=== PATIENT | male | born 1985 | race Caucasian/White ===

== ENCOUNTER 2017-08-04 15:03 | Emergency (ER) | payer MEDICARE | END 2017-08-04 17:37 | disposition home or self-care (01) | LOC: D.ER 15:03 | DX: S29.012A Strain of muscle and tendon of back wall of thorax, initial encounter (principal); X50.0XXA Overexertion from strenuous movement or load, initial encounter; X50.9XXA Other and unspecified overexertion or strenuous movements or postures, initial encounter; Y93.89 Activity, other specified; Y92.89 Other specified places as the place of occurrence of the external cause; F17.200 Nicotine dependence, unspecified, uncomplicated; N02.8 Recurrent and persistent hematuria with other morphologic changes ==

== ENCOUNTER 2017-10-21 21:57 | Emergency (ER) | payer SELFPAY ==
[~2017-10-21] VITALS: Ht 165.1 cm; Wt 83.9 kg
[2017-10-21 22:03] VITALS: Ht 165.1 cm; Wt 83.9 kg
[2017-10-21] MEDS ORDERED: BAYER CHEWABLE81 MG PO (22:04)
[2017-10-21] MEDS ORDERED: NEURONTIN800 MG PO (22:04)
[2017-10-21] MEDS ORDERED: ATARAX 25 MG TA25 MG PO (23:01)
[2017-10-21] MEDS ORDERED: PREDNISONE20 MG PO (23:01)
[2017-10-22 00:10] VITALS: BP 118/82
== END 2017-10-22 00:11 | disposition home or self-care (01) ==
LOC: D.ER 21:57
DX: L25.9 Unspecified contact dermatitis, unspecified cause (principal); I73.1 Thromboangiitis obliterans [Buerger's disease]

== ENCOUNTER 2017-10-31 21:08 | Emergency (ER) | payer SELFPAY ==
[~2017-10-31] VITALS: Ht 165.1 cm; Wt 84.1 kg
[~2017-10-31 21:08] MED LIST: ATARAX 25 MG TA25 MG PO; BAYER CHEWABLE81 MG PO; NEURONTIN800 MG PO; PREDNISONE20 MG PO
[2017-10-31 21:28] VITALS: Ht 165.1 cm; Wt 84.1 kg
[2017-10-31] MEDS ORDERED: HYDROCODONE-APA1 TAB PO (23:32)
[2017-10-31 23:51] VITALS: BP 124/68
== END 2017-10-31 23:50 | disposition home or self-care (01) ==
LOC: D.ER 21:08
DX: I73.1 Thromboangiitis obliterans [Buerger's disease] (principal); G62.9 Polyneuropathy, unspecified

== ENCOUNTER 2017-11-03 15:09 | Emergency (ER) | payer SELFPAY ==
[~2017-11-03] VITALS: Ht 165.1 cm; Wt 84.1 kg
[~2017-11-03 15:09] MED LIST changes: +HYDROCODONE-APA1 TAB PO
[2017-11-03 15:19] VITALS: BP 171/109; Ht 165.1 cm; Wt 84.1 kg
[2017-11-03 16:24] LABS: BASOPHILS 0.4 % (0-2); EOSINOPHILS 9.3 % (0-7); HEMATOCRIT 40.9 % (42.0-54.0); HEMOGLOBIN 13.8 g/dL (13.5-17.5); IMMATURE GRANULOCYTES 0.3 % (0-5); LYMPHOCYTES 16.6 % (15-50); MCH 29.6 pg (26.0-34.0); MCHC 33.7 g/dL (31.0-37.0); MCV 87.8 fL (80.0-100.0); MEAN PLATELET VOLUME 10.2 fL (7.4-10.4); MONOCYTES 8.8 % (2-11); NEUTROPHILS 64.6 % (40-80); PLATELET COUNT 215 10x3/uL (130-400); RBC 4.66 10x6/uL (4.20-6.10); RDW 12.9 % (11.5-14.5); WBC 7.5 10x3/uL (4.8-10.8)
[2017-11-03 16:35] LABS: ALBUMIN 3.7 g/dL (3.4-5.0); ALKALINE PHOSPHATASE 57 U/L (46-116); ALT (SGPT) 26 U/L (10-68); BILIRUBIN - TOTAL 0.21 mg/dL (0.2-1.3); CALC OSMOLALITY 279 mosm/kg (275-300); CALCIUM 8.5 mg/dL (8.5-10.1); CARBON DIOXIDE 32.9 mmol/L (21.0-32.0); CHLORIDE - SERUM 103 mmol/L (98-107); CREATININE - SERUM 0.9 mg/dL (0.6-1.3); GLUCOSE 104 mg/dL (74-106); POTASSIUM - SERUM 3.4 mmol/L (3.5-5.1); PROTEIN - SERUM 6.7 g/dL (6.4-8.2); SODIUM 141 mmol/L (136-145); UREA NITROGEN 9 mg/dL (7-18); eGFR NON AFRICAN AMERICAN > 90 mL/min (90-120)
== END 2017-11-03 18:13 | disposition home or self-care (01) ==
LOC: D.ER 15:09
PROVIDERS: Nurse Practitioner Family
DX: R20.2 Paresthesia of skin (principal); M79.662 Pain in left lower leg

== ENCOUNTER 2018-01-05 14:57 | Emergency (ER) | payer MEDICAID ==
[~2018-01-05] VITALS: Ht 165.1 cm; Wt 75.0 kg
[2018-01-05 15:00] VITALS: Ht 165.1 cm; Wt 75.0 kg
[2018-01-05] MEDS ORDERED: BAYER ASPIRIN325 MG PO (15:05)
[2018-01-05] MEDS ORDERED: CLOTRIM ANTIFUN15 GM TOPICAL (19:18)
[2018-01-05] MEDS ORDERED: NEURONTIN800 MG PO (19:18)
[2018-01-05] MEDS ORDERED: KEFLEX500 MG PO (19:18)
[2018-01-05 20:22] VITALS: BP 132/74
== END 2018-01-05 20:22 | disposition home or self-care (01) ==
LOC: D.ER 14:57
DX: I73.1 Thromboangiitis obliterans [Buerger's disease] (principal); B35.3 Tinea pedis; G40.909 Epilepsy, unspecified, not intractable, without status epilepticus

== ENCOUNTER 2018-01-22 17:25 | Observation (INO) | payer MEDICAID ==
[~2018-01-22] VITALS: Ht 165.1 cm; Wt 81.8 kg
--- NOTE | ~2018-01-22 | MORECARE ---
CASE MANAGEMENT DISCHARGE SUMMARY PATIENT: DUSTIN MORRISON UNIT: [id number] ADM DATE: 01/22/18 AGE: 32 : 85 SEX: M ROOM/BED: D.2118 AUTHOR: AMBROSE TOVAR PHYSICIAN: REFERRING PHYSICIAN: SHEILA SILVA MD DATE OF SERVICE: 01/23/18 Discharge Plan Patient Name: DUSTIN MORRISON [facility] [facility] 1985 Planned Disposition: Home Anticipated Discharge Date: 01/24/18 Discharge Date: Expected LOS: 2 Initial Reviewer: [email or web address] Initial Review Date: 01/22/2018 Generated: 01/23/18 5:46 pm DCPIA - Discharge Planning Initial Assessment Updated by [email or web address]: Mauri Hartley on 01/23/18 4:45 pm * Is the patient Alert and Oriented? Yes * How many steps to enter\exit or inside your home? * PCP NONE * Pharmacy [facility]. * Preadmission Environment Home with Family * ADLs Independent * Equipment Walker Wheelchair * Other Equipment NO MEDICAL EQUIPMENT PROVIDER PREFERENCE * List name and contact numbers for known caregivers / representatives who currently or will assist patient after discharge: CARIN CORDERO, SPOUSE, * Verbal permission to speak to the caregivers and representatives has been obtained from the patient. N/A * Community resources currently utilized None * Please name any agencies selected above. NONE * Additional services required to return to the preadmission environment? No * Can the patient safely return to the preadmission environment? Yes * Has this patient been hospitalized within the prior 30 days at any hospital? No Patient Name: DUSTIN MORRISON Page 71011 at 1646 All edits/amendments must be made on the electronic document DICTATION DATE: 01/23/181645 CARTON STAPLER: KVNG 01/23/181645 RPT#: [id number] DC DATE: STATUS: ADM IN [facility] [address] [place] [address] END OF REPORT
--- NOTE | ~2018-01-22 | MORECARE ---
CASE MANAGEMENT DISCHARGE SUMMARY PATIENT: DUSTIN MORRISON UNIT: [id number] ADM DATE: 01/22/18 AGE: 32 : 85 SEX: M ROOM/BED: D.0118 AUTHOR: GUY,DOC PHYSICIAN: REFERRING PHYSICIAN: SHEILA SILVA MD DATE OF SERVICE: 01/24/18 Discharge Plan Patient Name: DUSTIN MORRISON Facility: [facility]:[place] : 1985 Planned Disposition: Home Anticipated Discharge Date: 01/23/18 Discharge Date: 01/23/2018 Expected LOS: 1 Initial Reviewer: [email or web address] Initial Review Date: 01/22/2018 Generated: 01/24/18 8:37 am Comments DCP- Discharge Planning Updated by [email or web address]: Mauri Hartley on 01/23/18 3:[address] Patient Name: DUSTIN MORRISON Admission Status: ER Accout number: [id number] Admission Date: 01-22-2018 : 1985 Admission Diagnosis: Attending: SHEILA SILVA Current LOS: 1 Anticipated DC Date: 01-24-2018 Planned Disposition: Home Primary Insurance: MEDICAID [id number] Discharge Planning Comments: CM RECEIVED ORDER FOR PRIMARY CARE DOCTOR AND APPOINTMENT. CM MET WITH PT IN ROOM TO DISCUSS DISCHARGE PLANNING AND NEEDS. PT REPORTS LIVING AT HOME INDEPENDENTLY WITH HIS , CHILD AND ANOTHER ADULT ROOMMATE. PT HAS WALKER AND WHEELCHAIR WITH NO MEDICAL EQUIPMENT PROVIDER PREFERENCE. PT HAS NO OUTSIDE SERVICES ASSISTING IN THE HOME. CM DISCUSSED AVAILABILITY OF HOME HEALTH, REHAB SERVICES AND MEDICAL EQUIPMENT. PT DENIES DISCHARGE NEEDS BUT REPORTS NOT HAVING PRIMARY CARE DOCTOR AND HE HAS BEEN USING EMERGENCY ROOMS RECENTLY FOR MEDICAL CARE. PT HAS NOT BEEN GETTING HIS PRESCRIPTIONS, REPORTS HAVING MEDICAID THAT WILL NOT COVER MEDICATIONS BECAUSE HE ALSO HAS MEDICARE AND HAD TO BUY PART "D" COVERAGE BUT THAT WILL NOT TAKE EFFECT UNTIL . PT REPORTS HIS ROOMMATE WILL PICK HIM UP FOR DISCHARGE HOME. CM PROVIDED [facility] INFORMATION AND INSTRUCTED PT ON HOW TO CALL AND SCHEDULE APPOINTMENT FOR EVALUATION AT THE CLINIC FOR POSSIBLE PRIMARY CARE MEDICAL SERVICES. PT REPORTED UNDERSTANDING. CM REFERRED PT TO DEPARTMENT OF HUMAN SERVICES AND SOCIAL SECURITY ADMINISTRATION FOR QUESTIONS REGARDING HIS LACK OF PRESCRIPTION COVERAGE TO THIS POINT IN TIME. 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 PT REPORTS UNDERSTANDING. PT PLANS TO DISCHARGE HOME WITH FAMILY AND ROOMMATE. PATIENT DOES NOT HAVE PRESCRIPTION DRUG COVERAGE UNTIL APRIL 2018. PT REFERRED TO [facility] FOR PRIMARY CARE. CM WILL LOOK FOR ANY AVAILABLE DRUG ASSISTANCE PROGRAMS THAT MAY ASSIST PT PRIOR TO APRIL 2018 ONCE DISCHARGE MEDICATION LIST IS KNOWN. Ext Js Developer: Mauri Hartley DCPIA - Discharge Planning Initial Assessment Updated by [email or web address]: Mauri Hartley on 01/23/18 4:45 pm * Is the patient Alert and Oriented? Yes * How many steps to enter\\exit or inside your home? * PCP NONE * Pharmacy [facility]. * Preadmission Environment Home with Family * ADLs Independent * Equipment Walker Wheelchair * Other Equipment NO MEDICAL EQUIPMENT PROVIDER PREFERENCE * List name and contact numbers for known caregivers / representatives who currently or will assist patient after discharge: CARIN CORDERO, SPOUSE, * Verbal permission to speak to the caregivers and representatives has been obtained from the patient. N/A * Community resources currently utilized None * Please name any agencies selected above. NONE * Additional services required to return to the preadmission environment? No * Can the patient safely return to the preadmission environment? Yes * Has this patient been hospitalized within the prior 30 days at any hospital? No Last DP export: 01/23/18 3:56 Patient Name: DUSTIN MORRISON Page 16630 at 0737 All edits/amendments must be made on the electronic document DICTATION DATE: 01/24/18736 AIRCRAFT DELIVERY CHECKER: KVNG 01/24/1837 RPT#: [id number] DC DATE:01/23/18 STATUS: DIS IN [facility] [address] [place] [address] END OF REPORT
--- NOTE | ~2018-01-22 | MORECARE ---
CASE MANAGEMENT DISCHARGE SUMMARY PATIENT: DUSTIN MORRISON UNIT: [id number] ADM DATE: 01/22/18 AGE: 32 : 85 SEX: M ROOM/BED: D.3629 AUTHOR: GUY,DOC PHYSICIAN: REFERRING PHYSICIAN: SHEILA SILVA MD DATE OF SERVICE: 01/23/18 Discharge Plan Patient Name: DUSTIN MORRISON Facility: [facility]:[place] : 1985 Planned Disposition: Home Anticipated Discharge Date: 01/24/18 Discharge Date: Expected LOS: 2 Initial Reviewer: [email or web address] Initial Review Date: 01/22/2018 Generated: 01/23/18 5:56 pm Comments DCP- Discharge Planning Updated by [email or web address]: Mauri Hartley on 01/23/18 3:[address] Patient Name: DUSTIN MORRISON Admission Status: ER Accout number: [id number] Admission Date: 01-22-2018 : 1985 Admission Diagnosis: Attending: SHEILA SILVA Current LOS: 1 Anticipated DC Date: 01-24-2018 Planned Disposition: Home Primary Insurance: MEDICAID [place] Discharge Planning Comments: CM RECEIVED ORDER FOR PRIMARY CARE DOCTOR AND APPOINTMENT. CM MET WITH PT IN ROOM TO DISCUSS DISCHARGE PLANNING AND NEEDS. PT REPORTS LIVING AT HOME INDEPENDENTLY WITH HIS , CHILD AND ANOTHER ADULT ROOMMATE. PT HAS WALKER AND WHEELCHAIR WITH NO MEDICAL EQUIPMENT PROVIDER PREFERENCE. PT HAS NO OUTSIDE SERVICES ASSISTING IN THE HOME. CM DISCUSSED AVAILABILITY OF HOME HEALTH, REHAB SERVICES AND MEDICAL EQUIPMENT. PT DENIES DISCHARGE NEEDS BUT REPORTS NOT HAVING PRIMARY CARE DOCTOR AND HE HAS BEEN USING EMERGENCY ROOMS RECENTLY FOR MEDICAL CARE. PT HAS NOT BEEN GETTING HIS PRESCRIPTIONS, REPORTS HAVING MEDICAID THAT WILL NOT COVER MEDICATIONS BECAUSE HE ALSO HAS MEDICARE AND HAD TO BUY PART "D" COVERAGE BUT THAT WILL NOT TAKE EFFECT UNTIL . PT REPORTS HIS ROOMMATE WILL PICK HIM UP FOR DISCHARGE HOME. CM PROVIDED [facility] INFORMATION AND INSTRUCTED PT ON HOW TO CALL AND SCHEDULE APPOINTMENT FOR EVALUATION AT THE CLINIC FOR POSSIBLE PRIMARY CARE MEDICAL SERVICES. PT REPORTED UNDERSTANDING. CM REFERRED PT TO DEPARTMENT OF HUMAN SERVICES AND SOCIAL SECURITY ADMINISTRATION FOR QUESTIONS REGARDING HIS LACK OF PRESCRIPTION COVERAGE TO THIS POINT IN TIME. 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 PT REPORTS UNDERSTANDING. PT PLANS TO DISCHARGE HOME WITH FAMILY AND ROOMMATE. PATIENT DOES NOT HAVE PRESCRIPTION DRUG COVERAGE UNTIL APRIL 2018. PT REFERRED TO [facility] FOR PRIMARY CARE. CM WILL LOOK FOR ANY AVAILABLE DRUG ASSISTANCE PROGRAMS THAT MAY ASSIST PT PRIOR TO APRIL 2018 ONCE DISCHARGE MEDICATION LIST IS KNOWN. Child Adolescent Psychiatrist: Mauri Hartley DCPIA - Discharge Planning Initial Assessment Updated by [id number]: Mauri Hartley on 01/23/18 4:45 pm * Is the patient Alert and Oriented? Yes * How many steps to enter\\exit or inside your home? * PCP NONE * Pharmacy [facility]. * Preadmission Environment Home with Family * ADLs Independent * Equipment Walker Wheelchair * Other Equipment NO MEDICAL EQUIPMENT PROVIDER PREFERENCE * List name and contact numbers for known caregivers / representatives who currently or will assist patient after discharge: CARIN CORDERO, SPOUSE, * Verbal permission to speak to the caregivers and representatives has been obtained from the patient. N/A * Community resources currently utilized None * Please name any agencies selected above. NONE * Additional services required to return to the preadmission environment? No * Can the patient safely return to the preadmission environment? Yes * Has this patient been hospitalized within the prior 30 days at any hospital? No Last DP export: 01/23/18 3:46 Patient Name: DUSTIN MORRISON Page [id number] at 1656 All edits/amendments must be made on the electronic document DICTATION DATE: 01/23/181655 HVAC DESIGNER: KVNG 01/23/181655 RPT#: [id number] DC DATE: STATUS: ADM IN [facility] [address] [place] [address] END OF REPORT
[~2018-01-22 17:25] MED LIST changes: +BAYER ASPIRIN325 MG PO; +CLOTRIM ANTIFUN15 GM TOPICAL; +KEFLEX500 MG PO
[2018-01-22] MEDS ORDERED: ULTRAM50 MG PO (17:29)
[2018-01-22 19:16] LABS: BASOPHILS 0.9 % (0-2); EOSINOPHILS 11.7 % (0-7); HEMATOCRIT 45.4 % (42.0-54.0); HEMOGLOBIN 15.9 g/dL (13.5-17.5); IMMATURE GRANULOCYTES 0.2 % (0-5); LYMPHOCYTES 14.8 % (15-50); MCH 29.7 pg (26.0-34.0); MCV 84.9 fL (80.0-100.0); MEAN PLATELET VOLUME 12.4 fL (7.4-10.4); MONOCYTES 7.7 % (2-11); NEUTROPHILS 64.7 % (40-80); PLATELET COUNT 217 10x3/uL (130-400); RBC 5.35 10x6/uL (4.20-6.10); RDW 13.4 % (11.5-14.5); WBC 8.5 10x3/uL (4.8-10.8)
[2018-01-22 19:40] LABS: ALKALINE PHOSPHATASE 66 U/L (46-116); ALT (SGPT) 41 U/L (10-68); BILIRUBIN - TOTAL 0.23 mg/dL (0.2-1.3); CALC OSMOLALITY 282 mosm/kg (275-300); CALCIUM 9.3 mg/dL (8.5-10.1); CARBON DIOXIDE 25.9 mmol/L (21.0-32.0); CHLORIDE - SERUM 103 mmol/L (98-107); CREATININE - SERUM 0.9 mg/dL (0.6-1.3); GLUCOSE 124 mg/dL (74-106); POTASSIUM - SERUM 4.1 mmol/L (3.5-5.1); PROTEIN - SERUM 7.3 g/dL (6.4-8.2); SODIUM 141 mmol/L (136-145); UREA NITROGEN 14 mg/dL (7-18); eGFR NON AFRICAN AMERICAN > 90 mL/min (90-120)
[2018-01-22 19:41] LABS: APTT 26.4 SECONDS (22.8-39.4); INR 1.22 (0.85-1.17)
[2018-01-22 20:09] LABS: APPEARANCE CLEAR (CLEAR); COLOR YELLOW (YELLOW); SPECIFIC GRAVITY 1.015 (1.005-1.020)
[2018-01-22 20:10] LABS: BILIRUBIN NEGATIVE (NEGATIVE); GLUCOSE NEGATIVE (NEGATIVE); KETONE NEGATIVE (NEGATIVE); NITRITE NEGATIVE (NEGATIVE); PROTEIN NEGATIVE (NEGATIVE); UROBILINOGEN NORMAL (NORMAL)
[2018-01-22 22:49] VITALS: BP 136/64
[2018-01-23] VITALS: BP 118/71
[2018-01-23 04:00] VITALS: BP 121/74
[2018-01-23 06:15] LABS: BASOPHILS 0.1 % (0-2); EOSINOPHILS 0.1 % (0-7); HEMATOCRIT 40.7 % (42.0-54.0); HEMOGLOBIN 14.4 g/dL (13.5-17.5); IMMATURE GRANULOCYTES 0.4 % (0-5); LYMPHOCYTES 7.4 % (15-50); MCH 30.4 pg (26.0-34.0); MCHC 35.4 g/dL (31.0-37.0); MEAN PLATELET VOLUME 11.9 fL (7.4-10.4); MONOCYTES 2.8 % (2-11); NEUTROPHILS 89.2 % (40-80); RBC 4.73 10x6/uL (4.20-6.10); RDW 13.5 % (11.5-14.5); WBC 7.1 10x3/uL (4.8-10.8)
[2018-01-23 06:26] LABS: PLATELET COUNT 150 10x3/uL (130-400)
[2018-01-23 07:11] LABS: ALBUMIN 3.9 g/dL (3.4-5.0); ALKALINE PHOSPHATASE 57 U/L (46-116); ALT (SGPT) 39 U/L (10-68); BILIRUBIN - TOTAL 0.31 mg/dL (0.2-1.3); CALC OSMOLALITY 279 mosm/kg (275-300); CALCIUM 9.5 mg/dL (8.5-10.1); CARBON DIOXIDE 26.4 mmol/L (21.0-32.0); CHLORIDE - SERUM 103 mmol/L (98-107); CREATININE - SERUM 0.9 mg/dL (0.6-1.3); GLUCOSE 151 mg/dL (74-106); POTASSIUM - SERUM 4.6 mmol/L (3.5-5.1); PROTEIN - SERUM 7.2 g/dL (6.4-8.2); SODIUM 139 mmol/L (136-145); UREA NITROGEN 11 mg/dL (7-18); eGFR NON AFRICAN AMERICAN > 90 mL/min (90-120)
[2018-01-23 08:14] VITALS: BP 96/58
[2018-01-23 11:52] VITALS: BP 116/69
[2018-01-23 12:11] VITALS: Ht 165.1 cm; Wt 81.8 kg
[2018-01-23] MEDS ORDERED: NORCO 10-325 TA1 TAB PO (12:27)
[2018-01-23 15:03] VITALS: BP 110/62
== END 2018-01-23 20:02 | disposition home or self-care (01) ==
LOC: D.ER 17:25 → D.M2 21:06 → OBSVTIME 21:07 → D.M2 01-23 20:02
PROVIDERS: Family Medicine
DX: S27.321A Contusion of lung, unilateral, initial encounter (principal); V49.40XA Driver injured in collision with unspecified motor vehicles in traffic accident, initial encounter; M79.642 Pain in left hand; M79.641 Pain in right hand; M25.562 Pain in left knee; M25.561 Pain in right knee; R51 Headache; M54.2 Cervicalgia

== ENCOUNTER 2018-04-12 12:10 | Inpatient (IN) | payer MEDICARE ==
[~2018-04-12] VITALS: Ht 165.1 cm; Wt 83.9 kg
[~2018-04-12 12:10] MED LIST changes: +NORCO 10-325 TA1 TAB PO; +ULTRAM50 MG PO
[2018-04-12 15:13] VITALS: BP 129/91; BMI 30.8
[2018-04-12] MEDS ORDERED: COLACE100 MG PO (19:32)
[2018-04-12] MEDS ORDERED: OXYCODONE HCL5 M1 PO ×2 (19:33→19:35)
[2018-04-12] MEDS ORDERED: CYCLOBENZAPRINE5 MG PO (19:37)
[2018-04-12] MEDS ORDERED: PAMELOR10 MG PO (19:38)
--- NOTE | 2018-04-12 20:00 | NUR ---
PT RESTING IN BED WITH EYES OPEN. ALERT AND ORIENTED X 3. PT VOICED COMPLAINT OF LEFT LEG INCISION PAIN LEVEL OF 8. WILL MEDICATE PER MAR NECESSARY. INCISION IS CDI. LUIS ARE INTACT. NO ACTIVE DRAINAGE NOTED. PT HAS HIS LEG IMMOBILIZER OFF. HE STATED IT CAUSED TO MUCH PAIN TO WEAR IT WHILE IN BED. CALL LIGHT AND BEDSIDE TABLE ARE WITHIN EASY REACH.
[2018-04-12 20:33] VITALS: BP 163/86
--- NOTE | 2018-04-12 23:40 | NUR ---
PT IS RESTING IN BED WATCHING TV. NO ACUTE DISTRESS NOTED.
--- NOTE | 2018-04-13 01:46 | NUR ---
PT RESTING IN BED WITH EYES CLOSED.
--- NOTE | 2018-04-13 04:51 | NUR ---
RESTING IN BED WITH EYES CLOSED.
--- NOTE | 2018-04-13 05:57 | NUR ---
PT ASLEEP NO NEEDS NOTED FLUIDS AND CALL LIGHT WITHIN REACH
[2018-04-13 06:47] LABS: HEMATOCRIT 35.2 % (42.0-54.0); HEMOGLOBIN 11.6 g/dL (13.5-17.5); MCH 29.3 pg (26.0-34.0); MCV 88.9 fL (80.0-100.0); MEAN PLATELET VOLUME 10.7 fL (7.4-10.4); RBC 3.96 10x6/uL (4.20-6.10); RDW 13.4 % (11.5-14.5); WBC 7.4 10x3/uL (4.8-10.8)
[2018-04-13 06:49] LABS: PLATELET COUNT 206 10x3/uL (130-400)
[2018-04-13 07:17] LABS: CALC OSMOLALITY 273 mosm/kg (275-300); CALCIUM 9.1 mg/dL (8.5-10.1); CARBON DIOXIDE 28.4 mmol/L (21.0-32.0); CHLORIDE - SERUM 100 mmol/L (98-107); CREATININE - SERUM 0.9 mg/dL (0.6-1.3); GLUCOSE 121 mg/dL (74-106); POTASSIUM - SERUM 4.1 mmol/L (3.5-5.1); SODIUM 137 mmol/L (136-145); UREA NITROGEN 9 mg/dL (7-18); eGFR NON AFRICAN AMERICAN > 90 mL/min (90-120)
--- NOTE | 2018-04-13 08:00 | NUR ---
SHIFT ASSMT COMPLETED.LBKA WITH LUIS INTACT.END OF STUMP APPEARS RED BUT NOT HOT,HAS HX OF BURGERS DZ.BREAKFAST GIVEN.
[2018-04-13 08:07] VITALS: BP 146/97
[2018-04-13 10:19] VITALS: Ht 165.1 cm; Wt 83.9 kg
--- NOTE | 2018-04-13 12:00 | NUR ---
EATING LUNCH.DENIES NEEDS.
[2018-04-13 12:53] LABS: BASOPHILS 1 % (0-2); EOSINOPHILS 9 % (0-7); LYMPHOCYTES 14 % (15-50); MONOCYTES 13 % (2-11); NEUTROPHILS 63 % (40-80); PLATELET ESTIMATE NORMAL; SMUDGE CELLS 2+
--- NOTE | 2018-04-13 16:00 | NUR ---
RESTING QUIETLY.CL IN REACH.
--- NOTE | 2018-04-13 20:00 | NUR ---
PT IS RESTING IN BED WITH EYES OPEN. ALERT AND ORIENTED X 3. VOICES COMPLAINT OF LEFT LEG PAIN LEVEL OF 5 AT THIS TIME. PT STATES: "IM GOING TO NEED MY PAIN MEDICATION DAMIAN. DR SHEPPARD HERE TO SEE PT. NEW ORDERS NOTED. INCISION TO LEFT BKA IS CDI. LUIS ARE INTACT. NO DRAINAGE NOTED. SR'S ARE UP X 3 IN BED. CALL LIGHT AND BEDSIDE TABLE ARE WITHIN EASY REACH.
[2018-04-13 22:27] VITALS: BP 149/87
--- NOTE | 2018-04-13 22:43 | NUR ---
PT IS RESTING IN BED WATCHING TV. NO NEEDS VOICED.
--- NOTE | 2018-04-14 01:07 | NUR ---
PT IS RESTING IN BED WATCHING TV. NO NEEDS VOICED.
--- NOTE | 2018-04-14 03:00 | NUR ---
PT RESTING QUIETLY IN BED WITH EYES CLOSED.
[2018-04-14 08:00] VITALS: BP 133/95
--- NOTE | 2018-04-14 08:00 | NUR ---
SHIFT ASSMT COMPLETED.STUMP UP ON PILLOW.LUIS INTACT.CL IN REACH.
--- NOTE | 2018-04-14 12:00 | NUR ---
SITTING UP IN BED EATING LUNCH.
--- NOTE | 2018-04-14 14:46 | NUR ---
EMESIS NOTED,STATED VOMITIED ENSURE AND FELT LIKE HE HAD DRANKED IT TO FAST AND UPSET STOMACH.ZOFRAN GIVEN.
[2018-04-14 19:22] VITALS: BP 127/90
--- NOTE | 2018-04-14 19:46 | NUR ---
PATIENT IS RESTING IN HIS BED. VITAL SIGNS ARE STABLE. BED IS DOWN LOW WITH SIDE RAILS UP X2. CALL LIGHT IS IN REACH.
--- NOTE | 2018-04-14 21:26 | NUR ---
PATIENT IS RESTING IN HIS BED. STATES HE DOES WANT HIS PRN PAIN MEDICINE WHEN HE CAN HAVE IT. INFORMED PATIENT HE MAY HAVE HIS PAIN MED AT 2143. PATIANT VERBALIZES UNDERSTANDING. NO OTHER REQUESTS AT THIS TIME. BED IS DOWN LOW WITH SIDE RAILS UP X2. CALL LIGHT IN REACH.
--- NOTE | 2018-04-15 00:07 | NUR ---
PATIENT IS SLEEPING. BED IS DOWN LOW. CALL LIGHT IS IN REACH.
--- NOTE | 2018-04-15 04:05 | NUR ---
PATIENT IS SLEEPING. BED IS DOWN LOW WITH SIDE RAILS UP X2. CALL LIGHT IS IN REACH.
--- NOTE | 2018-04-15 07:25 | NUR ---
PT SITTING UP IN BED LISTENING TO MUSIC ON PHONE. CL IN REACH. PT DENIES NEEDS OR PAIN. BED IN LOW POSITION SIDE RAILS X2. RESP EVEN AND UNLABORED. WILL CONTINUE TO MONITOR.
[2018-04-15 07:27] LABS: BASOPHILS 0.3 % (0-2); EOSINOPHILS 8.8 % (0-7); HEMATOCRIT 37.2 % (42.0-54.0); HEMOGLOBIN 12.3 g/dL (13.5-17.5); IMMATURE GRANULOCYTES 0.4 % (0-5); MCH 29.4 pg (26.0-34.0); MCHC 33.1 g/dL (31.0-37.0); MCV 88.8 fL (80.0-100.0); MEAN PLATELET VOLUME 10.3 fL (7.4-10.4); MONOCYTES 8.2 % (2-11); NEUTROPHILS 68.3 % (40-80); RBC 4.19 10x6/uL (4.20-6.10); RDW 13.4 % (11.5-14.5); WBC 9.1 10x3/uL (4.8-10.8)
--- NOTE | 2018-04-15 07:46 | NUR ---
ALERT AND ORIENTED. NO CHANGE IN ASSESSMENT.
[2018-04-15 07:48] LABS: CALC OSMOLALITY 274 mosm/kg (275-300); CALCIUM 8.9 mg/dL (8.5-10.1); CHLORIDE - SERUM 100 mmol/L (98-107); CREATININE - SERUM 0.9 mg/dL (0.6-1.3); GLUCOSE 106 mg/dL (74-106); POTASSIUM - SERUM 4.2 mmol/L (3.5-5.1); SODIUM 137 mmol/L (136-145); UREA NITROGEN 15 mg/dL (7-18); eGFR NON AFRICAN AMERICAN > 90 mL/min (90-120)
[2018-04-15 07:54] LABS: PLATELET COUNT 275 10x3/uL (130-400)
[2018-04-15 08:21] VITALS: BP 145/93
--- NOTE | 2018-04-15 12:42 | NUR ---
PT SITTING UP IN BED. CL IN REACH. PT DENIES NEEDS OR PAIN. WCTM
--- NOTE | 2018-04-15 16:34 | NUR ---
PT SITTING UP IN BED. CL IN REACH. PT DENIES NEEDS OR PAIN. BED IN LOW POSITION. SIDE RAILS X2. VISITOR IN ROOM. WCTM
--- NOTE | 2018-04-15 18:01 | NUR ---
ASSISTED PT IN SHOWER AND IN BATHROOM WITH PT PER PT REQUEST. INFORMED TO CALL WHEN PT WAS DONE TO ASSIST TO WHEELCHAIR. WILL CONTINUE TO RAMANDEEP.
[2018-04-15 19:00] VITALS: BP 131/49
--- NOTE | 2018-04-15 19:04 | NUR ---
PATIENT IS RESTING IN HIS BED. STATES HE WILL WANT HIS PAIN MED AND FLEXERIL AT 1935. NO OTHER REQUESTS AT THIS TIME. BED IS DOWN LOW WITH SIDE RAILS UP X2. CALL LIGHT IS IN REACH.
--- NOTE | 2018-04-15 20:26 | NUR ---
PATIENT IS RESTING IN HIS BED. VITAL SIGNS ARE STABLE. BED IS DOWN LOW WITH SIDE RAILS UP X2. CALL LIGHT IS IN REACH.
--- NOTE | 2018-04-16 00:22 | NUR ---
PATIENT IS SLEEPING. CALL LIGHT IS IN REACH.
--- NOTE | 2018-04-16 04:17 | NUR ---
PATIENT IS SLEEPING. BED IS DOWN LOW AND CALL LIGHT IS IN REACH.
--- NOTE | 2018-04-16 07:25 | NUR ---
PT RESTING QUIETLY. CL IN REACH. NO SIGNS OF DISTRESS OR PAIN. BED IN LOW POSITION. SIDE RAILS X2. RESP EVEN AND UNLABORED. WCTM. BREAKFAST AT BEDSIDE.
[2018-04-16 07:33] VITALS: BP 128/85
--- NOTE | 2018-04-16 11:06 | NUR ---
PT SITTING UP IN WHEELCHAIR.CL IN REACH. PT DENIES NEEDS OR PAIN. VISITORS IN ROOM.
--- NOTE | 2018-04-16 14:12 | NUR ---
Nutrition Follow Up: Pt stated that his appetite was good. He said that he has been drinking most of the Ensure that is sent. RD discussed excessive calories with pt (6 Ensure/d is ~2000 kcal/d). RD informed pt that he would receive 1 Ensure per meal and if he was still hungry he could request something else to eat. Pt understood and agreed. Diet: Regular; 2 Ensure with each meal PO Intake: 86% meal avg BM: 04/13/18 Meds and labs reviewed Rec continue current diet. Will decrease Ensure to 1/meal. RD following.
--- NOTE | 2018-04-16 14:45 | NUR ---
PT IN THERAPY. DENIES NEEDS
--- NOTE | 2018-04-16 18:14 | NUR ---
PT SITTING UP IN BED. CL IN REACH. PT DENIES NEEDS OR PAIN. WCTM
[2018-04-16 20:04] VITALS: BP 148/90
--- NOTE | 2018-04-17 01:28 | NUR ---
PATIENT EYES CLOSED. RESPIRATIONS 18 & EVEN. BED LOW. CALL LIGHT WITHIN REACH. WILL CONTINUE TO MONITOR.
--- NOTE | 2018-04-17 04:33 | NUR ---
PATIENT GIVEN PAIN MEDICATION. PAIN LEVEL 6 TO LEFT LEG. PATIENT WHEELCHAIR AT BEDSIDE. BED LOW. CALL LIGHT WITHIN REACH. WILL CONTINUE TO MONITOR.
[2018-04-17 06:53] LABS: BASOPHILS 0.7 % (0-2); EOSINOPHILS 9.5 % (0-7); HEMATOCRIT 35.2 % (42.0-54.0); HEMOGLOBIN 11.7 g/dL (13.5-17.5); IMMATURE GRANULOCYTES 0.3 % (0-5); LYMPHOCYTES 16.7 % (15-50); MCH 29.2 pg (26.0-34.0); MCHC 33.2 g/dL (31.0-37.0); MCV 87.8 fL (80.0-100.0); MEAN PLATELET VOLUME 10.7 fL (7.4-10.4); MONOCYTES 11.8 % (2-11); PLATELET COUNT 295 10x3/uL (130-400); RBC 4.01 10x6/uL (4.20-6.10); RDW 13.4 % (11.5-14.5); WBC 7.1 10x3/uL (4.8-10.8)
[2018-04-17 06:55] LABS: CALC OSMOLALITY 282 mosm/kg (275-300); CALCIUM 8.8 mg/dL (8.5-10.1); CARBON DIOXIDE 30.4 mmol/L (21.0-32.0); CHLORIDE - SERUM 101 mmol/L (98-107); CREATININE - SERUM 0.9 mg/dL (0.6-1.3); GLUCOSE 152 mg/dL (74-106); POTASSIUM - SERUM 3.7 mmol/L (3.5-5.1); SODIUM 139 mmol/L (136-145); UREA NITROGEN 17 mg/dL (7-18); eGFR NON AFRICAN AMERICAN > 90 mL/min (90-120)
[2018-04-17 08:00] VITALS: BP 141/89
--- NOTE | 2018-04-17 08:00 | NUR ---
SHIFT ASSMT COMPLETED.ANTIONETTE WRAP DRSG ON LEFT BKA.BREAKFAST GIVEN.CL IN REACH.
--- NOTE | 2018-04-17 12:00 | NUR ---
SITTING UP IN BED PLAYING VIDEO GAMES.LUNCH GIVEN.
--- NOTE | 2018-04-17 16:35 | NUR ---
PATIENT ADMITTED TO REHAB FROMA [facility]. [facility] IS HIS PCP. DME AT HOME IS WALKER AND A WHEELCHAIR. DISCHARGE PLANS ARE FOR HIM TO RETURN HOME. WILL CONTINUE TO FOLLOW WITH PATIENT.
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
--- NOTE | 2018-04-17 19:08 | NUR ---
PATIENT IS RESTING IN HIS BED. BED IS DOWN LOW. CALL LIGHT IS IN REACH.
--- NOTE | 2018-04-17 20:46 | NUR ---
PATIENT IS RESTING IN HIS BED. VITAL SIGNS ARE STABLE. BED IS DOWN LOW. CALL LIGHT IS IN REACH.
--- NOTE | 2018-04-18 00:19 | NUR ---
PATIENT IS RESTING IN HIS BED. DENIES ANY NEEDS. BED IS DOWN LOW. CALL LIGHT IS IN REACH.
[2018-04-18 01:19] VITALS: BP 157/100
--- NOTE | 2018-04-18 04:09 | NUR ---
PATIENT IS SLEEPING. BED IS DOWN LOW WITH SIDE RAILS UP X2. CALL LIGHT IS IN REACH.
[2018-04-18 08:00] VITALS: BP 133/96
--- NOTE | 2018-04-18 08:00 | NUR ---
SHIFT ASSMT COMPLETED.
--- NOTE | 2018-04-18 16:00 | NUR ---
RESTING WITH EYES CLOSED.RESPS EASY.
[2018-04-18 19:00] VITALS: BP 129/88
--- NOTE | 2018-04-18 19:28 | NUR ---
GREETED PATIENT AND INTRODUCED MYSELF. PATIENT IS CURRENTLY LAYING IN BED WITH A FEMALE PLAYING XBOX. STATES HIS PAIN LEVEL AT 5/10 AFTER PAIN MEDICATION GIVEN AT 1845. CALL LIGHT IN REACH. BED IN LOWEST POSITION.
--- NOTE | 2018-04-19 02:30 | NUR ---
PATIENT ASLEEP WITH EYES CLOSED LAYING IN SUPINE POSITION. IN BED WITH PATIENT ASLEEP. NO SIGNS OF DISTRESS. CALL LIGHT IN REACH.
--- NOTE | 2018-04-19 04:30 | NUR ---
PATIENT ASLEEP IN SUPINE POSITION WITH IN SAME BED ASLEEP. RESPIRATIONS EVEN. NO SIGNS OF DISTRESS. CALL LIGHT IN REACH. BED IN LOWEST POSITION.
[2018-04-19 07:22] LABS: BASOPHILS 0.7 % (0-2); EOSINOPHILS 7.6 % (0-7); HEMATOCRIT 35.8 % (42.0-54.0); HEMOGLOBIN 11.7 g/dL (13.5-17.5); IMMATURE GRANULOCYTES 0.3 % (0-5); LYMPHOCYTES 13.5 % (15-50); MCHC 32.7 g/dL (31.0-37.0); MCV 88.6 fL (80.0-100.0); MEAN PLATELET VOLUME 10.5 fL (7.4-10.4); MONOCYTES 9.4 % (2-11); NEUTROPHILS 68.5 % (40-80); PLATELET COUNT 302 10x3/uL (130-400); RBC 4.04 10x6/uL (4.20-6.10); RDW 13.7 % (11.5-14.5); WBC 7.7 10x3/uL (4.8-10.8)
[2018-04-19 07:35] LABS: CALC OSMOLALITY 274 mosm/kg (275-300); CALCIUM 8.5 mg/dL (8.5-10.1); CARBON DIOXIDE 30.1 mmol/L (21.0-32.0); CHLORIDE - SERUM 101 mmol/L (98-107); CREATININE - SERUM 0.9 mg/dL (0.6-1.3); POTASSIUM - SERUM 4.2 mmol/L (3.5-5.1); SODIUM 137 mmol/L (136-145); UREA NITROGEN 14 mg/dL (7-18); eGFR NON AFRICAN AMERICAN > 90 mL/min (90-120)
[2018-04-19 07:38] LABS: GLUCOSE 102 mg/dL (74-106)
--- NOTE | 2018-04-19 08:00 | NUR ---
SHIFT ASSMT COMPLETED.
[2018-04-19] MEDS ORDERED: XARELTO20 MG PO (08:50)
[2018-04-19] MEDS ORDERED: oxyCODONE IR PO (08:50)
--- NOTE | 2018-04-19 09:36 | NUR ---
PATIENT DISCHARGING HOME TODAY WITH FAMILY. PATIENT DECLINES HOME HEALTH AND ANY NEW DME NEEDS AT THIS TIME. PATIENT IS A CLIENT OF [facility] AND WILL MAKE HIS OWN APPOINTMENT.LAVONNE HERNÁNDEZ [facility]N [facility] 04/24/18 @ 2:00. DISCHARGE INSTRUCTIONS WITH [facility] DATA FAXED TO [employer]
--- NOTE | 2018-04-19 12:00 | NUR ---
REVIEWED MEDS AND F/U.MEDS CALLED INTO [facility] [address].
--- NOTE | 2018-04-19 13:15 | NUR ---
DC'D WITH PERSONAL WC TO HOME IN STABLE CONDITION WITH APPLIANCE ON STUMP WITH .
== END 2018-04-19 12:45 | disposition home or self-care (01) | DRG 561 ==
LOC: D.REHAB 12:10
PROVIDERS: ADMIT Emergency Medicine
DX: Z47.81 Encounter for orthopedic aftercare following surgical amputation (principal); Z89.512 Acquired absence of left leg below knee; I70.202 Unspecified atherosclerosis of native arteries of extremities, left leg; K21.9 Gastro-esophageal reflux disease without esophagitis; I73.1 Thromboangiitis obliterans [Buerger's disease]; I10 Essential (primary) hypertension; R00.0 Tachycardia, unspecified

== ENCOUNTER 2018-05-16 14:12 | Emergency (ER) | payer MEDICARE ==
[~2018-05-16] VITALS: Ht 165.1 cm; Wt 75.0 kg
[~2018-05-16 14:12] MED LIST changes: +COLACE100 MG PO; +CYCLOBENZAPRINE5 MG PO; +OXYCODONE HCL5 M1 PO; +PAMELOR10 MG PO; +XARELTO20 MG PO; +oxyCODONE IR PO
[2018-05-16 14:36] VITALS: Ht 165.1 cm; Wt 75.0 kg
[2018-05-16] MEDS ORDERED: SULFAMETHOXAZOL1 TA3 PO (14:40)
[2018-05-16 15:35] LABS: ALBUMIN 4.2 g/dL (3.4-5.0); ALKALINE PHOSPHATASE 71 U/L (46-116); ALT (SGPT) 23 U/L (10-68); BILIRUBIN - TOTAL 0.42 mg/dL (0.2-1.3); CALC OSMOLALITY 271 mosm/kg (275-300); CALCIUM 9.2 mg/dL (8.5-10.1); CARBON DIOXIDE 26.1 mmol/L (21.0-32.0); CHLORIDE - SERUM 100 mmol/L (98-107); CREATININE - SERUM 1.1 mg/dL (0.6-1.3); GLUCOSE 112 mg/dL (74-106); SODIUM 136 mmol/L (136-145); UREA NITROGEN 11 mg/dL (7-18); eGFR NON AFRICAN AMERICAN 82 mL/min (90-120)
[2018-05-16 15:40] LABS: APTT 43.8 SECONDS (22.8-39.4); INR 2.7 (0.85-1.17); PROTIME 27.9 SECONDS (11.6-15.0)
[2018-05-16 15:41] LABS: HEMATOCRIT 46.3 % (42.0-54.0); HEMOGLOBIN 15.7 g/dL (13.5-17.5); LYMPHOCYTES 16.2 % (15-50); MCH 29.6 pg (26.0-34.0); MCHC 33.9 g/dL (31.0-37.0); MCV 87.2 fL (80.0-100.0); MEAN PLATELET VOLUME 10.7 fL (7.4-10.4); NEUTROPHILS 74.8 % (40-80); PLATELET COUNT 253 10x3/uL (130-400); RBC 5.31 10x6/uL (4.20-6.10); RDW 13.2 % (11.5-14.5)
[2018-05-16 17:10] VITALS: BP 138/84
== END 2018-05-16 17:06 | disposition home or self-care (01) ==
LOC: D.ER 14:12
PROVIDERS: Family Medicine
DX: M25.562 Pain in left knee (principal); Z79.01 Long term (current) use of anticoagulants; Z89.512 Acquired absence of left leg below knee

== ENCOUNTER 2018-06-09 17:41 | Emergency (ER) | payer MEDICAID ==
[~2018-06-09] VITALS: Ht 165.1 cm; Wt 75.0 kg
[~2018-06-09 17:41] MED LIST changes: +SULFAMETHOXAZOL1 TA3 PO
[2018-06-09 17:44] VITALS: Ht 165.1 cm; Wt 75.0 kg
[2018-06-09] MEDS ORDERED: TALWIN NX1 TAB PO (18:57)
[2018-06-09] MEDS ORDERED: VIBRAMYCIN 100100 MG PO (18:57)
[2018-06-09 19:49] VITALS: BP 148/91
== END 2018-06-09 19:49 | disposition home or self-care (01) ==
LOC: D.ER 17:41
DX: L03.116 Cellulitis of left lower limb (principal); Z89.512 Acquired absence of left leg below knee

== ENCOUNTER 2018-06-19 11:07 | Day surgery (SDC) | payer MEDICAID ==
[~2018-06-19] VITALS: Ht 165.1 cm; Wt 74.8 kg
--- NOTE | ~2018-06-19 | OP ---
PATIENT NAME: DUSTIN MORRISON MEDICAL RECORD: [id number] :85 LOCATION:.[facility] ADMISSION DATE: SURGEON: TAPAN SILVA MD DATE OF OPERATION: 06/19/2018 PREOPERATIVE DIAGNOSIS: Nonhealing xxihx-qzf-pahk amputation stump. POSTOPERATIVE DIAGNOSIS: Nonhealing gifyw-cap-eloe amputation stump. PROCEDURE: Excisional debridement of the xfyen-nny-hufg amputation stump. Dimensions of debridement, including margins, measured 2.0 x 1.8 cm with application of acellular xenograft for soft tissue reinforcement (67 sq.cm). SURGEON: Tapan Silva MD GASTROENTEROLOGY NURSE: None. BLOOD LOSS: Minimal. ANESTHESIA: General. COMPLICATIONS: None. The risks, possible complications, and alternatives to the procedure were explained to the patient. He elects to proceed. The discussion specifically included, but was not limited to, bleeding requiring emergency reoperation, infection, as well as nonhealing of the wound. OPERATIVE COURSE: The patient was conveyed to the operating room electively on 06/19/2018. General anesthesia was induced by anesthesia staff. The left lower extremity stump was sterilely prepped and draped. I performed curettage of the nonhealing wound. There was some bleeding. The powdered ACell was added to the wound. On top of this, the rectangular portion of the ACell was applied. A sterile dressing was applied then, consisting of Adaptic, a lubricating gel, and then an occlusive dressing. The patient was then extubated and conveyed to post-anesthesia care unit where he was in stable condition. TRANSINT:[id number] Voice Confirmation ID: [id number] DOCUMENT ID: [id number] TAPAN SILVA MD CC: [id number] DICTATION DATE: 07/25/18 143 TRAY WORKER: 07/25/18 [id number] [facility] 06/19/18 [place] [id number]
[~2018-06-19 11:07] MED LIST changes: +TALWIN NX1 TAB PO; +VIBRAMYCIN 100100 MG PO
[2018-06-19 11:44] LABS: HEMATOCRIT 43.1 % (42.0-54.0); HEMOGLOBIN 14.6 g/dL (13.5-17.5); MCH 28.7 pg (26.0-34.0); MCHC 33.9 g/dL (31.0-37.0); MCV 84.7 fL (80.0-100.0); MEAN PLATELET VOLUME 10.2 fL (7.4-10.4); RBC 5.09 10x6/uL (4.20-6.10); RDW 12.9 % (11.5-14.5); WBC 6.8 10x3/uL (4.8-10.8)
[2018-06-19] MEDS ORDERED: FLUTICASONE PRO16 GM (12:20)
[2018-06-19] MEDS ORDERED: VIBRAMYCIN 100100 MG PO (12:20)
[2018-06-19 12:35] VITALS: BP 123/94; Ht 165.1 cm; Wt 74.8 kg
== END 2018-06-19 15:35 | disposition home or self-care (01) ==
LOC: D.OPS 11:07 → D.PAN 12:00 → D.OPS 12:00
PROVIDERS: Anesthesiology; ATTEND Surgery
DX: T87.89 Other complications of amputation stump (principal); Z01.812 Encounter for preprocedural laboratory examination

== ENCOUNTER 2018-08-19 11:54 | Emergency (ER) | payer MEDICAID ==
[~2018-08-19] VITALS: Ht 165.1 cm; Wt 75.0 kg
[~2018-08-19 11:54] MED LIST changes: +FLUTICASONE PRO16 GM
[2018-08-19 12:23] VITALS: Ht 165.1 cm; Wt 75.0 kg
[2018-08-19] MEDS ORDERED: IBUPROFEN800 MG PO (14:41)
[2018-08-19] MEDS ORDERED: ULTRAM50 MG PO (14:43)
[2018-08-19 15:00] VITALS: BP 128/72
== END 2018-08-19 15:01 | disposition home or self-care (01) ==
LOC: D.ER 11:54
DX: M79.605 Pain in left leg (principal); W18.30XA Fall on same level, unspecified, initial encounter; Y93.89 Activity, other specified; Y92.019 Unspecified place in single-family (private) house as the place of occurrence of the external cause

== ENCOUNTER 2018-09-29 15:51 | Emergency (ER) | payer MEDICAID ==
[~2018-09-29] VITALS: Ht 165.1 cm; Wt 75.0 kg
[~2018-09-29 15:51] MED LIST changes: +IBUPROFEN800 MG PO
[2018-09-29 16:04] VITALS: Ht 165.1 cm; Wt 75.0 kg
[2018-09-29 16:57] LABS: BASOPHILS 0.9 % (0-2); EOSINOPHILS 13.2 % (0-7); HEMATOCRIT 41.5 % (42.0-54.0); HEMOGLOBIN 14.3 g/dL (13.5-17.5); IMMATURE GRANULOCYTES 0.3 % (0-5); LYMPHOCYTES 24.9 % (15-50); MCH 29.2 pg (26.0-34.0); MCHC 34.5 g/dL (31.0-37.0); MCV 84.7 fL (80.0-100.0); MEAN PLATELET VOLUME 11.2 fL (7.4-10.4); MONOCYTES 8.6 % (2-11); NEUTROPHILS 52.1 % (40-80); PLATELET COUNT 196 10x3/uL (130-400); RDW 13.7 % (11.5-14.5); WBC 6.9 10x3/uL (4.8-10.8)
[2018-09-29] MEDS ORDERED: TALWIN NX1 TAB PO (16:59)
[2018-09-29] MEDS ORDERED: BACLOFEN20 M1 PO (16:59)
[2018-09-29 17:10] LABS: ALBUMIN 4.3 g/dL (3.4-5.0); ALKALINE PHOSPHATASE 84 U/L (46-116); ALT (SGPT) 81 U/L (10-68); BILIRUBIN - TOTAL 0.26 mg/dL (0.2-1.3); CALC OSMOLALITY 280 mosm/kg (275-300); CALCIUM 8.9 mg/dL (8.5-10.1); CARBON DIOXIDE 29.3 mmol/L (21.0-32.0); CHLORIDE - SERUM 105 mmol/L (98-107); GLUCOSE 104 mg/dL (74-106); POTASSIUM - SERUM 3.6 mmol/L (3.5-5.1); PROTEIN - SERUM 7.2 g/dL (6.4-8.2); SODIUM 142 mmol/L (136-145); UREA NITROGEN 8 mg/dL (7-18); eGFR NON AFRICAN AMERICAN > 90 mL/min (90-120)
[2018-09-29 18:34] VITALS: BP 115/79
== END 2018-09-29 17:45 | disposition home or self-care (01) ==
LOC: D.ER 15:51
PROVIDERS: Family Medicine
DX: M25.562 Pain in left knee (principal); W18.30XA Fall on same level, unspecified, initial encounter; Y93.89 Activity, other specified; Y92.89 Other specified places as the place of occurrence of the external cause